=== PATIENT | male | born 1970 | race Caucasian/White ===

== ENCOUNTER 2022-08-09 19:13 | Emergency (ER) | payer OTHER, SELFPAY ==
[2022-08-09 19:16] VITALS: BP 116/87; PULSE 93; RESP 19; TEMP 36.8; O2SAT 93; BMI 29.0
--- NOTE | 2022-08-09 19:29 | CT_ITS ---
EXAM: CT MAXILLOFACIAL WITHOUT INTRAVENOUS CONTRAST CLINICAL INDICATION: fall TECHNIQUE: Helically acquired images were obtained of the face without intravenous contrast. This CT exam was performed using one or more of the following dose reduction techniques: automated exposure control, adjustment of the mA and/or kV according to patient size, and/or use of iterative reconstruction technique. This report was created using [employer] M[employer] report generation technology. RADIATION DOSE: Total DLP: 672.34 mGy-cm. COMPARISON: Cranial CT of this date. FINDINGS: BONES/JOINTS: There is minimal asymmetric smooth depression of the right infraorbital rim, consistent with old fracture. There are subtle asymmetric linear lucencies within the anterior and lateral sommer of the right maxillary antrum, best seen on the parasagittal images, indicating linear fractures, probably acute. Degenerative disc space narrowing partially visualized at C5/6 level. SOFT TISSUES: Right facial soft tissue swelling is present, greatest over the right maxillary antrum. No discrete subcutaneous fluid collections. ORBITS: Both globes are unremarkable. Extraocular muscles are normal. Retrobulbar fat appears unremarkable. No intraorbital hematoma. SINUSES: There is a broad defect within the medial wall of each maxillary antrum. There is thickening and sclerosis of wall of each maxillary antrum due to chronic sinusitis. Mucosal thickening noted within the maxillary antra, within the ethmoid air cells and right frontal sinus, and also extending into the small sphenoid sinuses. High density/inspissated secretions noted within the right maxillary antrum. No paranasal sinus air-fluid levels are seen. 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 Asymmetric fluid noted within the small left mastoid air cells. Nonspecific fluid also noted within each middle ear cavity, abutting the middle ear ossicles. DENTAL: Findings of dental caries and periodontal disease are noted. No acute mandibular fracture or TMJ dislocation. CT/Sinus/Facial Bone IMPRESSION: Subtle linear fractures of the anterior and lateral sommer of the right maxillary antrum, with associated right facial soft tissue swelling. Findings of chronic sinusitis. Minimal old fracture of the right infraorbital rim. No intraorbital hematoma or emphysema. Findings of dental caries and periodontal disease. Electronically Signed: Kolby Huitron MD at 20:25 EST ,
--- NOTE | 2022-08-09 19:29 | CT_ITS ---
EXAM: CT HEAD WITHOUT INTRAVENOUS CONTRAST CLINICAL INDICATION: fall TECHNIQUE: Multiple axial images were obtained of the head without intravenous contrast. This CT exam was performed using one or more of the following dose reduction techniques: automated exposure control, adjustment of the mA and/or kV according to patient size, and/or use of iterative reconstruction technique. This report was created using [employer] report generation technology. RADIATION DOSE: Total DLP: 846.73 mGy-cm. COMPARISON: Facial bone CT of this date. FINDINGS: BRAIN AND EXTRA-AXIAL SPACES: Streak artifact extends through the inferior frontal cortex near the midline, but no acute intra- or extra-axial hemorrhage is identified. No evidence of acute infarct. No intracranial mass or mass effect. There is preservation of the ann/white matter interface. Posterior fossa structures are unremarkable. Ventricles are appropriate for age. No hydrocephalus. No midline shift. Basal cisterns are patent. BONES/JOINTS: There is subtle linear fractures of the lateral and anterior sommer of the right maxillary antrum, probably acute, and best seen on the parasagittal images. There is a minimal old fracture of the right infraorbital rim, as discussed on today''s facial bone CT report. No discrete lytic or blastic abnormalities. No linear or depressed skull fracture. SOFT TISSUES: Right facial soft tissue swelling again noted. SINUSES: Mucosal thickening within the maxillary antra, right greater than left, with inspissated secretions in the right maxillary antrum. Additional mucosal thickening within the right frontal sinus, ethmoid air cells and small sphenoid sinuses. Thickening and sclerosis of the maxillary sinus sommer due to chronic sinusitis. MASTOID AIR CELLS: Congenitally small. Nonspecific fluid again noted within the middle ear cavities and within the small left mastoid sinuses. ORBITS: No intraorbital hematoma or intraorbital emphysema. The globes are symmetric in size. CT/Brain/Head without Contrast IMPRESSION: Minimal linear fractures of the anterior and lateral sommer of the right maxillary antrum with right facial soft tissue swelling. Chronic sinusitis. No skull fracture or acute intracranial hemorrhage. Electronically Signed: Kolby Huitron MD at 20:32 EST ,
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
[2022-08-09] MEDS: Lidocaine/Epi/Tetracaine 50 ML 1 APPLIC TOPICAL (19:39)
[2022-08-09] MEDS: Diphth,Pertuss(Acell),Tet Vac 0.5 ML Vial IM (19:39)
--- NOTE | 2022-08-09 20:00 | RAD_ITS ---
EXAM: XR RIGHT RIBS AND AP CHEST, 3 OR MORE VIEWS CLINICAL INDICATION: fall TECHNIQUE: Frontal and oblique views of the right ribs and frontal view of the chest. This report was created using [employer] report generation technology. COMPARISON: None. FINDINGS: LUNGS AND PLEURAL SPACES: Interstitial fibrotic changes noted at the right lung base laterally. Additional infiltrate noted at the right lung base medially, due to scarring and/or pneumonia. No pneumothorax or pleural effusion. HEART: Heart size is within normal limits. MEDIASTINUM: Central airways and mediastinal contour are unremarkable. Thoracic aorta is not elongated. BONES/JOINTS: Acute nondisplaced fracture of the anterior right ninth rib, noted on one oblique view only. Old fracture of the anterior right ninth rib. The cortical margins of the posterior eighth rib are indistinct on the frontal view of the chest, but this rib appears intact on the oblique views. RAD/Ribs Uni Min 3V w/PA Chest IMPRESSION: Acute nondisplaced fracture of the anterior right 10th rib. Old fracture of the anterior right ninth rib. Asymmetric infiltrate at the right lung base medially due to scarring and/or pneumonia, depending upon clinical picture. No pneumothorax.. Electronically Signed: Kolby Huitron MD at 20:51 EST ,
--- NOTE | 2022-08-09 20:00 | RAD_ITS ---
EXAM: XR LEFT HAND COMPLETE, 3 OR MORE VIEWS CLINICAL INDICATION: injury TECHNIQUE: Frontal, lateral and oblique views of the left hand. This report was created using [employer] report [employer] technology. COMPARISON: None. FINDINGS: BONES/JOINTS: Comminuted intra-articular fracture is noted at the base of the first metacarpal with mild impaction of the fracture fragments, and with 2.5 mm radial displacement of the distal metacarpal fracture fragment. The osseous margins along the fracture lines are slightly smooth, suggesting that this could be a subacute to old fracture rather than an acute fracture, but correlation with the clinical findings is suggested. There is a well-healed fracture of the distal radius with an old avulsion fracture of the ulnar styloid process. A 2.5 mm partially partially corticated rounded calcification is seen adjacent to the base of the fifth metacarpal, due to old avulsion fracture or accessory ossicle. No sclerotic or destructive changes observed. No navicular waist fracture is noted. No dislocation is noted. SOFT TISSUES: Unremarkable. No soft tissue swelling or gas. No radiopaque foreign body. RAD/Hand Min 3 Views IMPRESSION: Comminuted intra-articular fracture of the base of the first metacarpal, of undetermined age. Old fractures of the distal radius and ulnar styloid process. Electronically Signed: Kolby Huitron MD at 20:43 EST ,
[2022-08-09] MEDS: Amox/Clavulanate 875 MG Tablet PO (20:52)
[2022-08-09] MEDS: HYDROcodone Bitartrate/Apap 5/325 Tablet PO (20:52)
[2022-08-09] MEDS: Lidocaine 1% (20 ml mdv) 20 ML Vial INFILT (20:52)
[2022-08-09 21:22] VITALS: BP 122/89; PULSE 85; RESP 18; O2SAT 100
== END 2022-08-09 21:46 | disposition home or self-care (01) ==
PROVIDERS: Emergency Provider Emergency Medicine; Visit Provider Emergency Medicine
DX: S01.111A Laceration without foreign body of right eyelid and periocular area, initial encounter (principal); S02.92XA Unspecified fracture of facial bones, initial encounter for closed fracture; S62.92XA Unspecified fracture of left hand, initial encounter for closed fracture; S22.31XA Fracture of one rib, right side, initial encounter for closed fracture; Z23 Encounter for immunization; V10.0XXA Pedal cycle driver injured in collision with pedestrian or animal in nontraffic accident, initial encounter
CPT/HCPCS: 12011; 70450; 70486; 71101; 73130; 90471; 90715; 99285